=== PATIENT | female | born 1985 | race Caucasian/White ===

== ENCOUNTER 2016-05-14 13:31 | Outpatient (CLI) | payer SELFPAY | END 2016-05-14 13:32 | disposition critical access hospital (66) | DX: O72.0 Third-stage hemorrhage (principal) | CPT/HCPCS: A0425; A0427 ==

== ENCOUNTER 2016-05-14 13:58 | Inpatient (IN) | payer SELFPAY ==
[2016-05-14] MEDS ORDERED: METHYLERGONOVINE 0.2 MG/ML AMP ONE (14:02)
[2016-05-14] MEDS ORDERED: OXYTOCIN/LACTATED RINGERS 250 ML IV ONE ×2 (14:03→16:21)
[2016-05-14] MEDS ORDERED: LACTATED RINGERS 1,000 ML IV ONE ×3 (14:30→15:31)
[2016-05-14] MEDS ORDERED: KETAMINE 500 MG/10 ML VIAL IVP ONE (15:45)
[2016-05-14] MEDS ORDERED: ceFAZolin 1 GM VIAL IV ONE (15:45)
[2016-05-14] MEDS ORDERED: METHYLERGONOVINE 0.2 MG/ML AMP IVP ONE (15:45)
[2016-05-14] MEDS ORDERED: MIDAZOLAM 2 MG/2 ML VIAL IVP ONE (15:45)
[2016-05-14] MEDS ORDERED: GLYCOPYRROLATE 1 MG/5 ML VIAL IVP ONE (15:45)
[2016-05-14] MEDS ORDERED: fentaNYL 100 MCG PATCH TOP ONE (15:45)
[2016-05-14] MEDS ORDERED: WITCH HAZEL/GLYCERIN 1 EACH MED..PAD TOP PRN (16:21)
[2016-05-14] MEDS ORDERED: ONDANSETRON 4 MG/2 ML VIAL IVP PRN (16:21)
[2016-05-14] MEDS ORDERED: diphenhydrAMINE 25 MG CAPSULE PO PRN (16:21)
[2016-05-14] MEDS ORDERED: METHYLERGONOVINE 0.2 MG/ML AMP IM PRN (16:21)
[2016-05-14] MEDS ORDERED: KETOROLAC 30 MG/ML VIAL IV PRN (16:21)
[2016-05-14] MEDS ORDERED: KETOROLAC 15 MG/ML VIAL ONE (16:33)
[2016-05-14] MEDS ORDERED: oxyCOD/ACETAMIN 5 MG/325 MG TABLET PO PRN (16:39)
[2016-05-14] MEDS ORDERED: ACETAMINOPHEN 325 MG TABLET PO PRN (16:41)
[2016-05-14] MEDS ORDERED: LACTATED RINGERS 1,000 ML IV SCH ×3 (17:00→20:00)
[2016-05-14] MEDS: IBUPROFEN 600 MG TABLET PO SCH (18:27)
[2016-05-14] MEDS: DOCUSATE SODIUM 100 MG CAPSULE PO SCH (21:52)
[2016-05-14] MEDS: SIMETHICONE CHEW 80 MG TABLET PO SCH (22:00)
[2016-05-15] MEDS: IBUPROFEN 600 MG TABLET PO SCH ×4 (00:05→19:47)
[2016-05-15] MEDS: SIMETHICONE CHEW 80 MG TABLET PO SCH ×3 (06:00→23:30)
[2016-05-15] MEDS ORDERED: WITCH HAZEL/GLYCERIN 1 EACH MED..PAD TOP PRN (10:11)
[2016-05-15] MEDS ORDERED: HYDROCORTISONE 1% CREAM 28 GM TUBE PR PRN (10:11)
[2016-05-15] MEDS ORDERED: HYDROCORTISONE/PRAMOXINE 10 GM PR PRN (10:11)
[2016-05-15] MEDS: DOCUSATE SODIUM 100 MG CAPSULE PO SCH ×2 (14:07→20:01)
[2016-05-16] MEDS: SIMETHICONE CHEW 80 MG TABLET PO SCH (07:58)
[2016-05-16] MEDS ORDERED: FERROUS SULFATE 325 MG TABLET PO SCH (08:00)
[2016-05-16] MEDS: DOCUSATE SODIUM 100 MG CAPSULE PO SCH (08:38)
== END 2016-05-16 09:45 | disposition home or self-care (01) | DRG 767 ==
PROC: 30233K1 Transfusion of Nonautologous Frozen Plasma into Peripheral Vein, Percutaneous Approach (ICD-10-PCS; principal; 2016-05-14 14:30)
PROC: 10D17ZZ Extraction of Products of Conception, Retained, Via Natural or Artificial Opening (ICD-10-PCS; principal; 2016-05-14 14:30)
DX: O72.0 Third-stage hemorrhage (principal); D62 Acute posthemorrhagic anemia; O90.81 Anemia of the puerperium; O43.213 Placenta accreta, third trimester; O72.3 Postpartum coagulation defects; D69.6 Thrombocytopenia, unspecified

== ENCOUNTER 2016-05-23 15:53 | Outpatient (CLI) | payer SELFPAY | END 2016-05-23 15:54 | disposition home or self-care (01) | DX: Z13.0 Encounter for screening for diseases of the blood and blood-forming organs and certain disorders involving the immune mechanism (principal) ==

== ENCOUNTER 2023-02-20 12:24 | Outpatient (CLI) | payer SELFPAY ==
[2023-02-20 12:41] LABS: BASOPHILS # (AUTO) 0.1 10^3/uL (0.0-0.1); BASOPHILS % (AUTO) 0.8 %; EOSINOPHILS # (AUTO) 0.1 10^3/uL (0.0-0.7); EOSINOPHILS % (AUTO) 1.3 %; HCT - HEMATOCRIT 37.9 % (37.0-47.0); HGB - HEMOGLOBIN 13.3 g/dL (12.0-16.0); LYMPHOCYTES # (AUTO) 1.7 10^3/uL (1.5-3.5); LYMPHOCYTES % (AUTO) 26.2 %; MEAN CORPUSCULAR HEMOGLOBIN 29.8 pg (27.0-31.0); MEAN CORPUSCULAR HGB CONC 35.1 g/dL (32.0-36.0); MEAN PLATELET VOLUME 10.3 fL (7.9-10.8); MONOCYTES # (AUTO) 0.4 10^3/uL (0.0-1.0); MONOCYTES % (AUTO) 5.5 %; NEUTROPHILS # (AUTO) 4.2 10^3/uL (1.5-6.6); NEUTROPHILS % (AUTO) 65.9 %; PLT - PLATELET COUNT 201 10^3/uL (130-450); RED BLOOD COUNT 4.46 10^6/uL (4.20-5.40); RED CELL DISTRIBUTION WIDTH 12.6 % (12.0-15.0); WHITE BLOOD COUNT 6.4 x10^3/uL (4.8-10.8)
== END 2023-02-20 12:25 | disposition home or self-care (01) ==
LOC: LAB.R 12:24
PROVIDERS: ATTEND Nurse Practitioner Obstetrics & Gynecology
DX: Z34.81 Encounter for supervision of other normal pregnancy, first trimester (principal)
CPT/HCPCS: 81599; 85025; 86762; 86850; 86900; 86901; 87086